=== PATIENT | female | born 1990 | race Two or more races ===

== ENCOUNTER 2018-07-09 22:21 | Emergency (ER) | payer OTHER ==
[~2018-07-09] VITALS: Ht 162.6 cm; Wt 87.5 kg
[2018-07-09 22:28] VITALS: BP 125/82
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
[2018-07-09] MEDS ORDERED: CARISOPRODOL 350 MG TABLET ONE (22:55)
[2018-07-09] MEDS ORDERED: HYDROCODONE/APAP 5/325MG 1 EACH TABLET ONE (22:55)
--- NOTE | 2018-07-09 22:59 | NUR ---
PT MEDICATED FOR PAIN.
[2018-07-09] MEDS ORDERED: CARISOPRODOL 350 MG TABLET PO ONE (23:00)
[2018-07-09] MEDS ORDERED: HYDROCODONE/APAP 5/325MG 1 EACH TABLET PO ONE (23:00)
--- NOTE | 2018-07-09 23:12 | NUR ---
PAIN IS MINIMAL NOW. ACI WITH RX GIVEN. PT DISCHARGED HOME TO FOLLOW UP WITH PMD.
== END 2018-07-09 23:18 | disposition home or self-care (01) ==
LOC: ER 22:23
DX: M54.2 Cervicalgia (principal); M62.838 Other muscle spasm; Z98.890 Other specified postprocedural states; V49.59XA Passenger injured in collision with other motor vehicles in traffic accident, initial encounter; Y93.89 Activity, other specified; Y92.413 State road as the place of occurrence of the external cause; Y99.8 Other external cause status
CPT/HCPCS: 99283; A4606; Z7610

== ENCOUNTER 2020-05-17 23:08 | Emergency (ER) | payer OTHER ==
[~2020-05-17] VITALS: Ht 162.6 cm; Wt 93.0 kg
--- NOTE | 2020-05-17 23:26 | NUR ---
PATIENT CAME TO ER BED 6 C/O MEDIAL ABDOMINAL PAIN FOR 9x DAYS. PATIENT STATES THAT SHE IS NAUSEOUS AND HAS BEEN HAVING DIARRHEA. PATIENT STATES THAT WHENEVER SHE EATS, SHE HAS THE URGE TO HAVE DIARRHEA. PATIENT CURRENTLY IS NAUSEOUS. AAOX4. NO SOB. BREATHING EVENLY AND UNLABORED ON ROOM AIR. CONNECTED TO THE MONITOR.
[2020-05-17] MEDS ORDERED: ONDANSETRON HCL/PF 4 MG/2 ML VIAL ONE (23:37)
[2020-05-17] MEDS ORDERED: MORPHINE SULFATE INJ 4 MG/ML DISP.SYRIN ONE (23:38)
--- NOTE | 2020-05-17 23:51 | NUR ---
BLOOD COLLECTED AND SENT TO THE LAB.
[2020-05-17 23:52] LABS: BASOPHILS # (AUTO) 0.1 /CMM (0.0-0.2); BASOPHILS % (AUTO) 0.9 % (0.0-2.0); EOSINOPHILS % (AUTO) 3.3 % (0.0-6.0); HEMATOCRIT 38 % (33-45); HEMOGLOBIN 12.9 g/dL (11.5-14.8); LYMPHOCYTES # (AUTO) 2.5 /CMM (0.8-4.8); LYMPHOCYTES % (AUTO) 35.4 % (20.0-44.0); MEAN CORPUSCULAR HGB CONC 34 g/dl (31.0-36.0); MEAN CORPUSCULAR VOLUME 86 fL (82-100); MONOCYTES # (AUTO) 0.6 /CMM (0.1-1.30); MONOCYTES % (AUTO) 8.4 % (2.0-12.0); NEUTROPHILS # (AUTO) 3.6 /CMM (1.8-8.9); PLATELET COUNT (AUTO) 127 /CMM (150-450); RED BLOOD CELL COUNT(AUTO) 4.46 MIL/uL (4.0-5.2); WHITE BLOOD COUNT (AUTO) 6.9 K/uL (4.3-11.0)
[2020-05-18] LABS: APPEARANCE,URINE Clear (CLEAR); BILIRUBIN,URINE Negative (NEGATIVE); BLOOD, URINE Negative Ery/uL (NEGATIVE); COLOR,URINE Yellow (YELLOW); KETONES,URINE Negative (NEGATIVE); LEUKOCYTE ESTERASE ,URINE Negative (NEGATIVE); NITRITE, URINE Negative (NEGATIVE); PH,URINE 5.5 (5.0-8.0); PROTEIN,URINE Negative (NEGATIVE); UGLUCOSE Negative (NEGATIVE); UROBILINOGEN,URINE 0.2 EU/dL (0.2)
[2020-05-18] MEDS ORDERED: MORPHINE SULFATE INJ 2 MG/ML DISP.SYRIN IV ONE
[2020-05-18] MEDS ORDERED: ONDANSETRON HCL/PF 4 MG/2 ML VIAL IVP ONE
[2020-05-18] MEDS ORDERED: IV NS 0.9% 1,000 ML BAG IV ONE
[2020-05-18 00:06] LABS: ALBUMIN 3.7 g/dL (3.4-5.0); BILIRUBIN,DIRECT 0.1 mg/dL (0.0-0.2); BILIRUBIN,TOTAL 0.4 mg/dL (0.2-1.0); CALCIUM, SERUM 8.5 mg/dL (8.5-10.1); CREATININE 0.7 mg/dL (0.6-1.3); POTASSIUM 3.5 mmol/L (3.5-5.1); TOTAL PROTEIN, SERUM 7.5 g/dL (6.4-8.2)
--- NOTE | 2020-05-18 00:11 | NUR ---
PT WAS PICKED UP FOR CT
--- NOTE | 2020-05-18 00:43 | NUR ---
PATIENT AMBULATED TO THE RESTROOM WITH A STEADY GAIT.
[2020-05-18] MEDS ORDERED: HYDROMORPHONE 1 MG/1 ML DISP.SYRIN ONE (00:47)
[2020-05-18] MEDS ORDERED: HYDROMORPHONE 1 MG/1 ML DISP.SYRIN IV ONE (01:00)
--- NOTE | 2020-05-18 01:30 | NUR ---
PATIENT WILL CALL BROTHER TO PICK HER UP.
[2020-05-18] MEDS ORDERED: ONDANSETRON HCL/PF 4 MG/2 ML VIAL ONE (01:47)
[2020-05-18] MEDS ORDERED: ONDANSETRON HCL/PF 4 MG/2 ML VIAL IV ONE (02:00)
--- NOTE | 2020-05-18 02:21 | NUR ---
IV removed. Catheter intact and site benign. Pressure and 4x4 applied to site. No bleeding noted.
--- NOTE | 2020-05-18 02:21 | NUR ---
Patient discharged to home in stable condition. Written and verbal after care instructions given. Patient verbalizes understanding of instruction.
[2020-05-18 02:22] VITALS: BP 127/77
== END 2020-05-18 02:23 | disposition home or self-care (01) ==
LOC: ER 23:10
DX: N20.0 Calculus of kidney (principal); Z98.890 Other specified postprocedural states
CPT/HCPCS: 36415; 74176; 80048; 80076; 81001; 83690; 84703; 85025; 96361; 96374; 96375 ×2; 96376; 99284; J1170; J2270; J2405 ×2; J7030; 81000-TC

== ENCOUNTER 2021-02-04 21:04 | Emergency (ER) | payer OTHER ==
[~2021-02-04] VITALS: Ht 167.6 cm; Wt 90.7 kg
--- NOTE | 2021-02-04 21:24 | NUR ---
PATIENT BIBSELF C/O RIGHT LOWER ABDOMINAL PAIN RADIATING TO THE LOWER BACK FOR 3x DAYS. PATIENT ALSO C/O NAUSEA AND URINARY FREQUENCY. PATIENT IS ALERT AND ORIENTED x4. DENIES SHORTNESS OF BREATH. PATIENT IS CONNECTED TO THE MONITOR.
[2021-02-04] MEDS ORDERED: ONDANSETRON HCL/PF 4 MG/2 ML VIAL ONE (21:30)
[2021-02-04] MEDS ORDERED: KETOROLAC TROMETHAMINE INJ 30 MG/ML VIAL ONE (21:31)
[2021-02-04 21:34] LABS: BILIRUBIN,URINE Negative (NEGATIVE); COLOR,URINE YELLOW (YELLOW); LEUKOCYTE ESTERASE ,URINE Trace (NEGATIVE); NITRITE, URINE Negative (NEGATIVE); PROTEIN,URINE Negative (NEGATIVE); UGLUCOSE Negative (NEGATIVE); UROBILINOGEN,URINE 0.2 EU/dL (0.2)
[2021-02-04 21:40] LABS: BACTERIA,URINE Moderate /HPF (None Seen); SQUAMOUS EPITHELIAL CELL,UR 0-2 /HPF (None Seen); WBC,URINE 21-50 /HPF (0-3)
--- NOTE | 2021-02-04 21:40 | NUR ---
BLOOD COLLECTED AND SENT TO THE LAB.
[2021-02-04] MEDS: ONDANSETRON HCL/PF 4 MG/2 ML VIAL IVP ONE (21:47)
[2021-02-04] MEDS: KETOROLAC TROMETHAMINE INJ 30 MG/ML VIAL IV ONE (21:47)
[2021-02-04] MEDS: IV NS 0.9% 1,000 ML BAG IV ONE (21:47)
[2021-02-04 21:49] LABS: BASOPHILS % (AUTO) 0.6 % (0.0-2.0); EOSINOPHILS % (AUTO) 3.3 % (0.0-6.0); HEMATOCRIT 38 % (33-45); HEMOGLOBIN 12.4 g/dL (11.5-14.8); LYMPHOCYTES # (AUTO) 2.6 K/uL (0.8-4.8); MEAN CORPUSCULAR HGB CONC 33 g/dl (31.0-36.0); MEAN CORPUSCULAR VOLUME 88 fL (82-100); MONOCYTES # (AUTO) 0.5 K/uL (0.1-1.30); MONOCYTES % (AUTO) 5.9 % (2.0-12.0); NEUTROPHILS # (AUTO) 4.4 K/uL (1.8-8.9); NEUTROPHILS % (AUTO) 57.2 % (43.0-81.0); PLATELET COUNT (AUTO) 125 K/uL (150-450); WHITE BLOOD COUNT (AUTO) 7.8 K/uL (4.3-11.0)
[2021-02-04 21:56] LABS: CALCIUM, SERUM 8.6 mg/dL (8.5-10.1); CREATININE 0.7 mg/dL (0.6-1.3); POTASSIUM 3.6 mmol/L (3.5-5.1)
[2021-02-04 22:02] LABS: ALBUMIN 3.4 g/dL (3.4-5.0); BILIRUBIN,DIRECT 0.1 mg/dL (0.0-0.2); BILIRUBIN,TOTAL 0.4 mg/dL (0.2-1.0); TOTAL PROTEIN, SERUM 7.1 g/dL (6.4-8.2)
[2021-02-04] MEDS ORDERED: CEPH500T PO (22:10)
[2021-02-04] MEDS ORDERED: PHEN-705 PO (22:10)
[2021-02-04] MEDS ORDERED: IBUP-1955 PO (22:10)
[2021-02-04] MEDS ORDERED: TRAMADOL HCL 50 MG TABLET ONE (22:17)
[2021-02-04] MEDS ORDERED: PHENAZOPYRIDINE HCL 200 MG TABLET ONE (22:17)
[2021-02-04] MEDS ORDERED: CEPHALEXIN MONOHYDRATE 500 MG CAPSULE PO ONE (22:17)
[2021-02-04] MEDS: PHENAZOPYRIDINE HCL 200 MG TABLET PO ONE (22:30)
[2021-02-04] MEDS: TRAMADOL HCL 50 MG TABLET PO ONE (22:30)
[2021-02-04] MEDS: CEPHALEXIN MONOHYDRATE 500 MG CAPSULE PO ONE (22:30)
--- NOTE | 2021-02-04 22:34 | NUR ---
patient called brother to pick her up.
--- NOTE | 2021-02-04 22:49 | NUR ---
IV removed. Catheter intact and site benign. Pressure and 4x4 applied to site. No bleeding noted.
--- NOTE | 2021-02-04 22:49 | NUR ---
Patient discharged to home in stable condition. Written and verbal after care instructions given. Patient verbalizes understanding of instruction.
[2021-02-04 23:52] VITALS: BP 133/78
== END 2021-02-04 23:53 | disposition home or self-care (01) ==
LOC: ER 21:12
DX: N39.0 Urinary tract infection, site not specified (principal); Z98.890 Other specified postprocedural states; Z79.899 Other long term (current) drug therapy
CPT/HCPCS: 36415; 80048; 80076; 81001; 84703; 85025; 87086; 96361; 96374; 96375; 99284; J1885; J2405; J7030; 87186-TC

== ENCOUNTER 2025-04-13 17:36 | Emergency (ER) | payer MEDICAID ==
[~2025-04-13] VITALS: Ht 162.6 cm; Wt 86.2 kg
[~2025-04-13 17:36] MED LIST: CEPH500T PO; CIPR7.5D9 RIGHT EAR; IBUP-1953 PO; IBUP-1955 PO; PHEN-705 PO
[2025-04-13 18:00] VITALS: BP 147/89; TEMP 98.3
[2025-04-13 18:15] LABS: PLATELET COUNT (AUTO) 212 K/uL (150-450); RED BLOOD CELL COUNT(AUTO) 4.43 MIL/uL (4.0-5.2); RED CELL DISTRIBUTION WIDTH 13.6 % (11.5-15.0); WHITE BLOOD COUNT (AUTO) 7.5 K/uL (4.3-11.0)
[2025-04-13 18:22] LABS: CALCIUM, SERUM 9.0 mg/dL (8.5-10.1); CREATININE 0.6 mg/dL (0.6-1.3); SODIUM SERUM 140.0 mmol/L (136-145); UREA NITROGEN, BLOOD 12.0 mg/dL (7-18)
[2025-04-13] MEDS ORDERED: ALBUTEROL FS 2.5 MG/3 ML VIAL.NEB ONE (18:29)
[2025-04-13] MEDS ORDERED: IPRATROPIUM NEB FS 0.5 MG/2.5 ML AMPUL.NEB ONE (18:29)
[2025-04-13 18:30] VITALS: O2SAT 96
[2025-04-13 18:35] LABS: NT-PRO BNP 97.0 pg/mL (0-125)
[2025-04-13] MEDS: IPRATROPIUM NEB FS 0.5 MG/2.5 ML AMPUL.NEB NEB ONE (18:35)
[2025-04-13] MEDS: ALBUTEROL FS 2.5 MG/3 ML VIAL.NEB NEB ONE (18:35)
[2025-04-13 18:43] VITALS: O2SAT 99
[2025-04-13] MEDS ORDERED: ALBU2.5V38 NEB (19:17)
[2025-04-13] MEDS ORDERED: PRED20TA PO (19:18)
== END 2025-04-13 20:03 | disposition home or self-care (01) ==
LOC: ER 17:46
DX: R06.00 Dyspnea, unspecified (principal); J45.909 Unspecified asthma, uncomplicated
CPT/HCPCS: 99285; 96374; 71045; 93005; 85025; 80048; 85378; 36415; 84484; 83880; 94640; J2919

== ENCOUNTER 2025-08-06 21:23 | Emergency (ER) | payer MEDICAID ==
[~2025-08-06] VITALS: Ht 167.6 cm; Wt 70.8 kg
[~2025-08-06 21:23] MED LIST changes: +ALBU2.5V38 NEB; +PRED20TA PO
[2025-08-06] MEDS ORDERED: dexaMETHasone SOD PHOSPHATE 1 ML ONE (22:31)
[2025-08-06] MEDS: dexaMETHasone SOD PHOSPHATE 4 MG/ML VIAL IM ONE (22:37)
[2025-08-06] MEDS: ALBUTEROL FS 2.5 MG/0.5 ML VIAL.NEB NEB ONE (22:44)
[2025-08-06 22:46] VITALS: O2SAT 98
[2025-08-06 22:46] LABS: PLATELET COUNT (AUTO) 207 K/uL (150-450); RED BLOOD CELL COUNT(AUTO) 4.48 MIL/uL (4.0-5.2); RED CELL DISTRIBUTION WIDTH 13.5 % (11.5-15.0); WHITE BLOOD COUNT (AUTO) 6.8 K/uL (4.3-11.0)
[2025-08-06] MEDS ORDERED: ALBUTEROL FS 2.5 MG/0.5 ML VIAL.NEB ONE (22:46)
[2025-08-06 22:53] LABS: CALCIUM, SERUM 8.8 mg/dL (8.5-10.1); CREATININE 0.6 mg/dL (0.6-1.3); SODIUM SERUM 139.0 mmol/L (136-145); UREA NITROGEN, BLOOD 17.0 mg/dL (7-18)
[2025-08-06 22:56] VITALS: O2SAT 100
[2025-08-06 23:02] LABS: INR 0.99 (0.91-1.10)
[2025-08-06 23:05] LABS: ASPARTATE AMINOTRANSFERASE 11.0 U/L (15-37); NT-PRO BNP 96.0 pg/mL (0-125); TOTAL PROTEIN, SERUM 8.1 g/dL (6.4-8.2)
[2025-08-06] MEDS ORDERED: IOHEXOL-350 100 ML VIAL IV ONE (23:10)
[2025-08-06] MEDS ORDERED: CT SWABBABLE VALVE TRANS SET 1 EA INFUS.SET MC ONE (23:10)
[2025-08-06] MEDS ORDERED: IV NS 0.9% 250 ML IV ONE (23:18)
[2025-08-07] MEDS ORDERED: AZIT250T PO (00:05)
[2025-08-07 00:35] VITALS: BP 118/69; TEMP 98.4; O2SAT 96
== END 2025-08-07 00:35 | disposition home or self-care (01) ==
LOC: ER 21:25
DX: J44.89 Other specified chronic obstructive pulmonary disease (principal); Z91.048 Other nonmedicinal substance allergy status
CPT/HCPCS: 99285; 71275; 71045; 85025; 80048; 80076; 85378; 84703; 36415; 85730; 83880; 94640; 96372; J1100; J7050; Q9967